=== PATIENT | male | born 1955 | race Caucasian/White ===

== ENCOUNTER 2019-11-13 07:32 | Outpatient (CLI) | payer OTHER ==
[2019-11-13 07:56] LABS: CHLORIDE 105 mmol/L (98-107)
[2019-11-13 08:02] LABS: ALANINE AMINOTRANSFERASE 24 U/L (12-78); ALBUMIN 3.7 g/dL (3.4-5.0); ALKALINE PHOSPHATASE 97 U/L (45-117); ANION GAP 7 mmol/L (5-15); BILIRUBIN,TOTAL 0.6 mg/dL (0.2-1.0); CALCIUM 9.5 mg/dL (8.5-10.1); CHOL/HDL RATIO 6.1; CHOLESTEROL, TOTAL 233 mg/dL (140-239); CREATININE 0.87 mg/dL (0.7-1.3); HDL CHOL % 16 % (26-37); HDL CHOLESTEROL (DIRECT) 38 mg/dL (40-60); LDL CHOLESTEROL,CALCULATED 141 mg/dL (54-169); LDL/HDL RATIO 3.7 (0.5-3.0); TOTAL PROTEIN 7.9 g/dL (6.4-8.2); TRIGLYCERIDES 268 mg/dL (50-200); VLDL CHOLESTEROL 54 mg/dL (0-25)
== END 2019-11-13 23:59 | disposition home or self-care (01) ==
LOC: LAB 07:32
PROVIDERS: ATTEND Physician Assistant
DX: E78.5 Hyperlipidemia, unspecified (principal); R73.03 Prediabetes
CPT/HCPCS: 36415; 80053; 80061; 83036

== ENCOUNTER 2020-06-26 07:22 | Outpatient (CLI) | payer OTHER ==
[2020-06-26 07:37] LABS: BASOPHILS % (AUTO) 1 % (0-1); EOSINOPHILS % (AUTO) 3 % (1-7); LYMPHOCYTES % (AUTO) 37 % (22-44); MEAN CORPUSCULAR HEMOGLOBIN 30.5 pg (27.5-34.5); MEAN CORPUSCULAR HGB CONC 33.7 g/dL (33.2-36.2); MEAN PLATELET VOLUME 8.4 fL (7.4-10.4); MONOCYTES % (AUTO) 9 % (2-9); NEUTROPHILS % (AUTO) 50 % (42-75); PLATELET COUNT 288 x10^3/uL (130-400); RED BLOOD COUNT 5.57 x10^6/uL (4.38-5.82); RED CELL DISTRIBUTION WIDTH 13.6 % (9.4-14.8)
[2020-06-26 07:42] LABS: MD NO
[2020-06-26 07:49] LABS: ALANINE AMINOTRANSFERASE 29 U/L (12-78); ALBUMIN 3.7 g/dL (3.4-5.0); ANION GAP 8 mmol/L (5-15); CALCIUM 8.9 mg/dL (8.5-10.1); CHLORIDE 105 mmol/L (98-107); CHOLESTEROL, TOTAL 244 mg/dL (140-239); CREATININE 0.88 mg/dL (0.7-1.3); TRIGLYCERIDES 189 mg/dL (50-200); VLDL CHOLESTEROL 38 mg/dL (0-25)
[2020-06-26 07:52] LABS: ALKALINE PHOSPHATASE 89 U/L (45-117); BILIRUBIN,TOTAL 0.6 mg/dL (0.2-1.0); CHOL/HDL RATIO 5.7; HDL CHOL % 18 % (26-37); HDL CHOLESTEROL (DIRECT) 43 mg/dL (40-60); LDL CHOLESTEROL,CALCULATED 163 mg/dL (54-169); LDL/HDL RATIO 3.8 (0.5-3.0); TOTAL PROTEIN 7.9 g/dL (6.4-8.2)
== END 2020-06-26 23:59 | disposition home or self-care (01) ==
LOC: LAB 07:22
PROVIDERS: ATTEND Physician Assistant
DX: Z12.5 Encounter for screening for malignant neoplasm of prostate (principal); Z00.01 Encounter for general adult medical examination with abnormal findings; Z13.1 Encounter for screening for diabetes mellitus; Z12.11 Encounter for screening for malignant neoplasm of colon; Z12.2 Encounter for screening for malignant neoplasm of respiratory organs; Z87.891 Personal history of nicotine dependence; E78.2 Mixed hyperlipidemia; R73.03 Prediabetes
CPT/HCPCS: 36415; 80053; 80061; 83036; 84153; 85025

== ENCOUNTER → 2020-07-22 | Outpatient (CLI) | payer OTHER | END | disposition home or self-care (01) | LOC: CFH 15:24 | PROVIDERS: ATTEND Physician Assistant | DX: Z12.2 Encounter for screening for malignant neoplasm of respiratory organs (principal); R91.8 Other nonspecific abnormal finding of lung field; I25.10 Atherosclerotic heart disease of native coronary artery without angina pectoris; Z87.891 Personal history of nicotine dependence | CPT/HCPCS: 71271 ==

== ENCOUNTER → 2020-09-02 | Outpatient (CLI) | payer OTHER ==
[2020-09-02 07:41] LABS: ALANINE AMINOTRANSFERASE 27 U/L (12-78); ALBUMIN 3.6 g/dL (3.4-5.0); ANION GAP 5 mmol/L (5-15); CALCIUM 9.2 mg/dL (8.5-10.1); CHLORIDE 109 mmol/L (98-107); CHOLESTEROL, TOTAL 127 mg/dL (140-239); CREATININE 0.77 mg/dL (0.7-1.3)
[2020-09-02 07:44] LABS: ALKALINE PHOSPHATASE 84 U/L (45-117); BILIRUBIN,TOTAL 0.5 mg/dL (0.2-1.0); HDL CHOL % 33 % (26-37); HDL CHOLESTEROL (DIRECT) 42 mg/dL (40-60); LDL CHOLESTEROL,CALCULATED 63 mg/dL (54-169); LDL/HDL RATIO 1.5 (0.5-3.0); TOTAL PROTEIN 7.5 g/dL (6.4-8.2); TRIGLYCERIDES 112 mg/dL (50-200); VLDL CHOLESTEROL 22 mg/dL (0-25)
== END | disposition home or self-care (01) ==
LOC: LAB 07:15
PROVIDERS: ATTEND Physician Assistant
DX: I25.10 Atherosclerotic heart disease of native coronary artery without angina pectoris (principal); I25.84 Coronary atherosclerosis due to calcified coronary lesion; E78.2 Mixed hyperlipidemia; R91.8 Other nonspecific abnormal finding of lung field; Z87.891 Personal history of nicotine dependence
CPT/HCPCS: 36415; 80053; 80061